=== PATIENT | male | born 1955 | race Hispanic/Latino ===

== ENCOUNTER 2018-05-06 15:28 | Outpatient (CLI) | payer OTHER ==
--- NOTE | 2018-05-06 16:02 | RAD ---
AP ABDOMINAL RADIOGRAPH: 05/06/2018 HISTORY: Recurrent kidney stones. COMPARISON: 04/02/2017 FINDINGS: No suspicious calcifications are seen on this examination. The bowel gas pattern is nonspecific. A small amount of retained fecal material is seen within the colon. Views of the abdomen are overall s table, compared to prior exam. IMPRESSION: No suspicious calcifications are seen along the expected location of the renal shadows or along the c ourse of either ureter. Renal shadows are mostly obscured by overlying bowel. POS: [facility]
== END 2018-05-06 15:29 | disposition home or self-care (01) ==
LOC: RAD 15:28
PROVIDERS: ATTEND Urology
DX: N20.0 Calculus of kidney (principal)
CPT/HCPCS: 36415; 74018; 80048; 81003; 87086; G0103

== ENCOUNTER 2018-05-12 19:30 | Outpatient (CLI) | payer OTHER | END 2018-05-12 19:31 | disposition home or self-care (01) | LOC: SLEEPLAB 19:30 | PROVIDERS: ATTEND Family Medicine | DX: G47.33 Obstructive sleep apnea (adult) (pediatric) (principal); R53.83 Other fatigue; G31.84 Mild cognitive impairment of uncertain or unknown etiology; R06.83 Snoring; K21.9 Gastro-esophageal reflux disease without esophagitis; I10 Essential (primary) hypertension; E66.9 Obesity, unspecified; Z68.36 Body mass index [BMI] 36.0-36.9, adult | CPT/HCPCS: 95811 ==

== ENCOUNTER 2018-05-22 15:48 | Outpatient (CLI) | payer OTHER | END 2018-05-22 15:49 | disposition home or self-care (01) | LOC: CTENTCT 15:48 | PROVIDERS: ATTEND Specialist | DX: J01.81 Other acute recurrent sinusitis (principal) | CPT/HCPCS: 70486 ==

== ENCOUNTER 2018-07-22 15:15 | Outpatient (CLI) | payer OTHER ==
--- NOTE | 2018-07-22 17:37 | MRI ---
MRI LEFT SHOULDER PERFORMED WITHOUT CONTRAST ENHANCEMENT: HISTORY: Left shoulder pain. FINDINGS: There are marked AC joint hypertrophic changes present. There is a massive rotator cuff tear. This involves basically the entirety of the supraspinatus and infraspinatus tendons, which are retracted b y approximately 4.6 cm. There is also a high-grade partial tear of the subscapularis tendon. The in terarticular portion of the biceps tendon is severely tendinopathic in appearance. The biceps tendon is also slightly subluxed in position. There are arthritic changes of the glenohumeral joint space. The posterior-superior labrum has an ir regular free edge. There is some blunting to the posterior-inferior labrum. The inferior glenohumer al ligament is intact. Severe supraspinatus and infraspinatus muscle atrophy is noted. Also, pronounced atrophy of the sam s minor muscle. IMPRESSION: Massive rotator cuff tear involving the entirety of the supraspinatus and infraspinatus tendons, also with a high-grade subscapularis tendon tear, and marked atrophy of supraspinatus and infraspinatus m uscles, and also marked atrophy of the teres minor muscle. POS: [facility]NA
== END 2018-07-22 15:16 | disposition home or self-care (01) ==
LOC: BICMRI 15:15
PROVIDERS: ATTEND Orthopaedic Surgery
DX: M75.42 Impingement syndrome of left shoulder (principal); M75.102 Unspecified rotator cuff tear or rupture of left shoulder, not specified as traumatic; M62.512 Muscle wasting and atrophy, not elsewhere classified, left shoulder